=== PATIENT | female | born 1980 | race American Indian/Alaskan Native ===

== ENCOUNTER 2017-06-07 23:28 | Emergency (ER) | payer SELFPAY ==
[2017-06-08 00:21] VITALS: BP 108/57
[2017-06-08 01:22] LABS: Anion Gap 15 mmol/L; BUN/Creatinine Ratio 16; Blood Urea Nitrogen 18 mg/dL (7-17); Calcium 8.7 mg/dL (8.4-10.2); Carbon Dioxide 26 mmol/L (22-30); Chloride 104.1 mmol/L (98-107); Glucose 90 mg/dL (65-100); Potassium 4.1 mmol/L (3.6-5.0); Sodium 141 mmol/L (137-145)
[2017-06-08 01:36] LABS: Basophils % (Auto) 0.5 % (0.0-1.8); Eosinophils % (Auto) 3.6 % (0.0-4.3); Hematocrit 36.8 % (30.3-42.9); Hemoglobin 11.9 gm/dl (10.1-14.3); Mean Corpuscular HGB Conc 32 % (30-34); Mean Corpuscular Volume 73 fl (79-97); Platelet Count 283 K/mm3 (140-440); Red Blood Count 5.05 M/mm3 (3.65-5.03); Red Cell Distribution Width 14.7 % (13.2-15.2); White Blood Count 12.3 K/mm3 (4.5-11.0)
[2017-06-08 01:38] LABS: Mean Corpuscular Hemoglobin 24 pg (28-32)
--- NOTE | 2017-06-08 07:24 | XRay Report ---
ROUTINE CHEST, TWO VIEWS: HISTORY: Shortness of breath. The trachea, heart, mediastinal contour, lung smith and bony thorax are unremarkable. IMPRESSION: Unremarkable chest x-ray.
== END 2017-06-08 01:00 | disposition left against medical advice (07) ==
LOC: ED 23:28
DX: R06.02 Shortness of breath (principal); Z53.21 Procedure and treatment not carried out due to patient leaving prior to being seen by health care provider
CPT/HCPCS: 36415; 71020; 80048; 84484; 85025; 93005; 93010

== ENCOUNTER 2019-01-07 08:06 | Outpatient (CLI) | payer OTHER ==
--- NOTE | 2019-01-07 09:45 | Fluoroscopy Report ---
HYSTEROSALPINGOGRAM: History: Fertility testing, infertility, history of uterine fibroid disease and endometrial polyps. Findings: Informed consent was obtained. Standard sterile prep and drape was employed. The catheter tip was subsequently placed within the uterine lumen via cervix. The small balloon on the tip of the catheter was inflated. 13 fluoroscopic images were captured. Retrograde injection of water-soluble contrast opacifies a normal appearing uterine lumen. The uterine lumen demonstrates no evidence for extrinsic compression or intrinsic mass. There is prompt filling of the right fallopian tubule with prompt spillage into the pelvis. There is nonvisualization of the left fallopian tubule. The left fallopian tubule appears to be occluded at its origin. IMPRESSION: Nonvisualization of the left fallopian tubule consistent with occlusion. Normal appearance of the endometrial cavity and right fallopian tubule.
== END 2019-01-07 08:07 | disposition home or self-care (01) ==
LOC: FLUORO 08:06
PROVIDERS: ATTEND Obstetrics & Gynecology Reproductive Endocrinology
DX: Z31.41 Encounter for fertility testing (principal); Z87.42 Personal history of other diseases of the female genital tract; Z79.899 Other long term (current) drug therapy; Z79.2 Long term (current) use of antibiotics
CPT/HCPCS: 58340; 74740; Q9967